=== PATIENT | female | born 1985 | race Caucasian/White ===

== ENCOUNTER 2016-09-22 11:13 | Emergency (ER) | payer OTHER ==
[2016-09-22] MEDS ORDERED: hydrOXYzine HCL TAB* 50 MG PO ONE (11:50)
[2016-09-22] MEDS ORDERED: hydrOXYzine HCL TAB* 25 MG PO ONE (11:55)
--- NOTE | 2016-09-22 11:57 | ED ---
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 Home had multiple pets - she's not sure if they were itching or not and doesn't recall seeing bugs. Has tried topical hydrocortisone cream w/o relief. She denies fever, chills, trouble breathing, YUAN, N/V/D. No one at home has a rash or is itching (sleeps with and has a few kids - none w/ rash). No new foods, plants, cosmetics, etc. Allergies to PCN and latex - no known contacts w/ either of these. - History of Current Complaint Chief Complaint: UCSkin Time Seen by Provider: 09/22/16 11:38 Stated Complaint: SKIN COMPLAINT Hx Obtained From: Patient Hx Last Menstrual Period: 09/22/16 - Allergy/Home Medications Allergies/Adverse Reactions: Allergies Allergy/AdvReac Type Severity Reaction Status Date / Time Latex Allergy Severe Rash Verified 09/22/16 11:29 Penicillins Allergy Severe LIPS/TONGUE Verified 09/22/16 11:29 SWELLING Home Medications: Home Medications Hydrocortisone 1% CREAM* [Hytone (Topical) 1%*] 1 applic TOPICAL ONCE PRN [History Confirmed 09/22/16] PMH/Surg Hx/FS Hx/Imm Hx Previously Healthy: Yes Endocrine/Hematology History: Denies: Hx Diabetes, Hx Thyroid Disease Cardiovascular History: Denies: Hx Hypertension Respiratory History: Reports: Hx Seasonal Allergies - mild Denies: Hx Asthma, Hx Chronic Obstructive Pulmonary Disease (COPD) GI History: Denies: Hx Ulcer Psychiatric History: Denies: Hx Depression - Surgical History Surgery Procedure, Year, and Place: X4. tubal. ankle surgery d/t septicemia. D&C. appendectomy 06/2014 Infectious Disease History: No Infectious Disease History: Denies: Hx Clostridium Difficile, Hx Hepatitis, Hx Human Immunodeficiency Virus (HIV), Hx of Known/Suspected MRSA, Hx Shingles, Hx Tuberculosis, Hx Known/ Suspected VRE, Hx Known/Suspected VRSA, History Other Infectious Disease, Traveled Outside the [place] in Last 30 Days - Family History Known Family History: Positive: Other - children w/ dye allergy - Social History Occupation: Employed Full-time - home health aid Lives: With Family Alcohol Use: None Hx Substance Use: No Substance Use Type: Reports: None Hx Tobacco Use: Yes Smoking Status (MU): Current Every Day Smoker Type: Cigarettes Amount Used/How Often: <1/2PPD Length of Time of Smoking/Using Tobacco: 14 YRS Have You Smoked in the Last Year: Yes Review of Systems Constitutional: Negative Eyes: Negative ENT: Negative Cardiovascular: Negative Respiratory: Negative Gastrointestinal: Negative Positive: no symptoms reported Musculoskeletal: Negative Skin: Other - see HPI Neurological: Negative Positive: Anxious All Other Systems Reviewed And Are Negative: Yes Physical Exam Triage Information Reviewed: Yes Vital Signs On Initial Exam: Initial Vitals Temp Pulse Resp BP Pulse Ox 97.7 F 87 14 132/73 98 09/22/16 11:22 09/22/16 11:22 09/22/16 11:22 09/22/16 11:22 09/22/16 11:22 Vital Signs Reviewed: Yes Appearance: Positive: Well-Appearing, No Pain Distress - but is concerned and anxious about burning and itching nature of her rash spots Skin: Positive: Warm, Dry - urticarial spots on arms, most concentrated over Rt tricep area; a few random spots on torso - appear to be bug bites w/ surrounding erythema and edema - no scabbing, no EM rash, no pusutles or vesicles Head/Face: Positive: Normal Head/Face Inspection Eyes: Positive: Normal, EOMI, Conjunctiva Clear ENT: Positive: Hearing grossly normal, Pharynx normal Respiratory/Lung Sounds: Positive: Clear to Auscultation, Breath Sounds Present. Negative: Rales, Rhonchi, Wheezes Cardiovascular: Positive: Normal, RRR, Pulses are Symmetrical in both Upper and Lower Extremities Bowel Sounds: Positive: Present Musculoskeletal: Positive: Normal, Strength/ROM Intact Neurological: Positive: Normal, Sensory/Motor Intact, Alert, Oriented to Person Place, Time, CN Intact II-III Psychiatric: Positive: Anxious Diagnostics - Vital Signs Vital Signs Temp Pulse Resp BP Pulse Ox 09/22/16 11:22 97.7 F 87 14 132/73 98 - Laboratory Lab Statement: Any lab studies that have been ordered have been reviewed, and results considered in the medical decision making process. Course/Dx - Course Course Of Treatment: Suspect pt is having an allergic reaction to insectr bites , possibly fleas based on report of contact w/ multiple animals recently and no one at home has contracted rash.Advise anti-histamine and topical hydrocortisone + ice. If no relief or worse tomorrow, start medrol dosepak. She has already reported this to her employer. Reviewed danger s/sx of when to go to ED. Pt will f/u w/ PCP otherwise. - Diagnoses Provider Diagnoses: Urticarial rash Discharge - Discharge Plan Condition: Stable Disposition: HOME Prescriptions: Methylprednisolone [Medrol Dosepak 4 MG*] 4 mg PO .SEE LIZZETH INSTRUCTION #1 lizzeth hydrOXYzine HCL TAB* [Atarax 25 MG TAB*] 25 mg PO QID PRN #20 tab PRN Reason: Itching Patient Education Materials: Urticaria (ED) Forms: *Work Release Referrals: Spring Romeo MD [Primary Care Provider] -
[2016-09-22 12:13] VITALS: BP 132/73
== END 2016-09-22 12:29 | disposition home or self-care (01) ==
LOC: UCCORT 11:13
DX: L50.9 Urticaria, unspecified (principal); Z88.0 Allergy status to penicillin; F17.210 Nicotine dependence, cigarettes, uncomplicated
CPT/HCPCS: 99212; A9270-GY; G0463

== ENCOUNTER 2017-05-24 10:24 | Emergency (ER) | payer OTHER ==
[2017-05-24 12:01] VITALS: BP 116/72
--- NOTE | 2017-05-24 12:36 | UC ---
Throat Pain/Nasal Russ HPI - HPI Summary HPI Summary: Pt presents with left earache and ST for the last 2 weeks. She tells me that about 2 weeks ago she started developed a ST, but wasn't that bad. Over the last week has had an increasingly painful left earache and sinus pain/pressure/ congestion. She denies fever, chills, cough, SOB, chest pain, abdominal pain, N/ V/D/C. - History of Current Complaint Chief Complaint: UCRespiratory Stated Complaint: SORE THROAT HEADACHE Time Seen by Provider: 05/24/17 12:34 Hx Obtained From: Patient Hx Last Menstrual Period: 04/22/17 Onset/Duration: Gradual Onset Severity: Moderate Pain Intensity: 5 Pain Scale Used: 0-10 Numeric - Allergies/Home Medications Allergies/Adverse Reactions: Allergies Allergy/AdvReac Type Severity Reaction Status Date / Time Latex Allergy Severe Rash Verified 05/24/17 11:57 Penicillins Allergy Severe LIPS/TONGUE Verified 05/24/17 11:57 SWELLING PMH/Surg Hx/FS Hx/Imm Hx Neurological History: Migraine - Surgical History Surgical History: Yes Surgery Procedure, Year, and Place: X3. ankle surgery d/t septicemia. D&C. appendectomy 06/2014 - Family History Known Family History: Positive: None, Other - children w/ dye allergy - Social History Occupation: Employed Full-time Lives: With Family Alcohol Use: None Substance Use Type: None Smoking Status (MU): Current Every Day Smoker Type: Cigarettes Amount Used/How Often: quit in october 2014 Length of Time of Smoking/Using Tobacco: 14 YRS Have You Smoked in the Last Year: Yes When Did the Patient Quit Smoking/Using Tobacco: 1 month ago Household Exposure Type: Cigarettes Cessation Counseling: Counseled 3+Min - 10 Min Review of Systems Constitutional: Negative Skin: Negative Eyes: Negative ENT: Sore Throat, Ear Ache, Nasal Discharge, Sinus Congestion, Sinus Pain/ Tenderness Respiratory: Negative Cardiovascular: Negative Gastrointestinal: Negative All Other Systems Reviewed And Are Negative: Yes Physical Exam Triage Information Reviewed: Yes Appearance: Well-Appearing, Obese Vital Signs: Initial Vital Signs Temp 97 F 05/24/17 11:58 Pulse 86 05/24/17 11:58 Resp 16 05/24/17 11:58 BP 116/72 05/24/17 11:58 Pulse Ox 100 05/24/17 11:58 Vital Signs Reviewed: Yes Eyes: Positive: Conjunctiva Clear. Negative: Conjunctiva Inflamed, Discharge ENT: Positive: Hearing grossly normal, Pharynx normal, Nasal congestion, Nasal drainage, TM bulging - LEft ear, TM red - Left ear, Sinus tenderness, Uvula midline. Negative: Pharyngeal erythema, Tonsillar swelling, Tonsillar exudate, Muffled voice, Hoarse voice Neck: Positive: Supple, Nontender, No Lymphadenopathy Respiratory: Positive: Chest non-tender, Lungs clear, Normal breath sounds, No respiratory distress, No accessory muscle use Cardiovascular: Positive: RRR, No Murmur, Pulses Normal Neurological: Positive: Alert Psychological: Positive: Age Appropriate Behavior Skin: Negative: rashes Throat Pain/Nasal Course/Dx - Course Course Of Treatment: left ear otitis media. sinusitis. Zpak - Differential Dx/Diagnosis Differential Diagnosis/HQI/PQRI: Influenza, Laryngitis, Mononucleosis, Otitis Media, Pharyngitis, Sinusitis, Tonsillitis, URI Provider Diagnoses: Left ear otitis media. Sinusitis Discharge - Discharge Plan Condition: Stable Disposition: HOME Prescriptions: Azithromycin TAB* [Zithromax TAB (Z-LIZZETH) 250 mg #6 tabs] 2 tab PO .TODAY, THEN 1 DAILY #1 lizzeth Patient Education Materials: Otitis Media (ED) Referrals: Alicia Saeed MD [Primary Care Provider] - Additional Instructions: If you develop a fever, shortness of breath, chest pain, new or worsening symptoms - please call your PCP or go to the ED.
== END 2017-05-24 13:00 | disposition home or self-care (01) ==
LOC: UCEAST 10:24
DX: H66.92 Otitis media, unspecified, left ear (principal); J32.9 Chronic sinusitis, unspecified; Z87.891 Personal history of nicotine dependence; Z88.0 Allergy status to penicillin; Z91.040 Latex allergy status
CPT/HCPCS: 99212; G0463

== ENCOUNTER 2018-03-24 09:55 | Emergency (ER) | payer OTHER ==
[2018-03-24 10:22] VITALS: BP 115/63
[2018-03-24] MEDS ORDERED: Naproxen TAB* 250 MG PO ONE (10:41)
--- NOTE | 2018-03-24 10:42 | UC ---
Minor Trauma HPI - HPI Summary HPI Summary: 32 year old female presents with left sided facial and jaw pain after accidentally running into corner of a wooden bunkbed yesterday at 15:00. Denies LOC. Pain is located primarily to left maxilla but patient also complains of tender over superior left orbital ridge and left TMJ. Fractured left upper tooth. Complains of cut on the inside of her left upper lip. Denies - History of Current Complaint Chief Complaint: UCHeadInjury Stated Complaint: FACIAL INJURY Time Seen by Provider: 03/24/18 10:18 Hx Obtained From: Patient Hx Last Menstrual Period: 03/24/18 Onset/Duration: Sudden Onset, Lasting Hours Onset Of Pain: Immediate Severity Currently: Moderate Pain Intensity: 8 Mechanism Of Injury: Direct Blow Aggravating Factor(s): Nothing Alleviating Factor(s): Nothing Associated Signs And Symptoms: Positive: Ecchymosis - See diagram. Negative: Loss Of Consciousness - Allergies/Home Medications Allergies/Adverse Reactions: Allergies Allergy/AdvReac Type Severity Reaction Status Date / Time latex Allergy Rash Verified 03/24/18 10:22 Penicillins Allergy Swelling Verified 03/24/18 10:22 Of Face,Lips,& Throat Home Medications: Home Medications Acetaminophen [Acetaminophen Extra Strength] 1,000 mg PO ONCE PRN 03/24/18 [ History Confirmed 03/24/18] Ibuprofen 800 mg PO ONCE PRN 03/24/18 [History Confirmed 03/24/18] PMH/Surg Hx/FS Hx/Imm Hx Previously Healthy: Yes - Denies significant PMH - Surgical History Surgical History: Yes Surgery Procedure, Year, and Place: X5, TUBAL LIGATION. ankle surgery d/t septicemia. D&C. appendectomy 06/2014 - Family History Family History: Noncontributory - Social History Occupation: Employed Full-time Lives: With Family Alcohol Use: None Substance Use Type: None Smoking Status (MU): Current Every Day Smoker Type: Cigarettes Amount Used/How Often: 5 cig/day Length of Time of Smoking/Using Tobacco: 14 YRS Have You Smoked in the Last Year: Yes When Did the Patient Quit Smoking/Using Tobacco: 1 month ago Household Exposure Type: Cigarettes Review of Systems Constitutional: Negative Skin: Bruising Eyes: Negative ENT: Other - See HPI Respiratory: Negative Cardiovascular: Negative Gastrointestinal: Negative Is Patient Immunocompromised?: No All Other Systems Reviewed And Are Negative: Yes Physical Exam Triage Information Reviewed: Yes Appearance: No Pain Distress, Obese Vital Signs: Initial Vital Signs Temp 98.3 F 03/24/18 10:14 Pulse 68 03/24/18 10:14 Resp 18 03/24/18 10:14 BP 115/63 03/24/18 10:14 Pulse Ox 97 03/24/18 10:14 Vital Signs Reviewed: Yes Eye Exam: Other - PERRLA. Extraoccular eye movements intact. No FB noted. Eyes: Positive: Conjunctiva Clear ENT: Positive: Pharynx normal, TMs normal, Uvula midline, Other - Tenderness to supraorbital ridge left eye. Tenderness over left maxilla. Tenderness to left TMJ however full ROM without clicking or popping. No subcutaneous emphysema noted.. Negative: Nasal congestion, Nasal drainage, Trismus Dental: Positive: Dental Fracture @ - #13 Neck: Positive: Supple, Nontender, Other: - Full painless cervical ROM. No spinous process tenderness. No deformity or stepoff. Respiratory: Positive: Lungs clear, Normal breath sounds Cardiovascular: Positive: RRR, No Murmur Neurological: Positive: Alert Skin Exam: Other - Ecchymosis as noted above. Diagnostics - Radiology No standard instances Radiology Interpretation Completed By: Radiologist Summary of Radiographic Findings: Patient Name: CHRISTA BUSTAMANTE Medical Record#: [id number]. Ordering Physician: Taurus Wiseman NP Acct.#: [id number]. : 1985 Age: 32 Sex: F Location: [facility]. Exam Date: 07/10 1033 ADM Status: REG ER. Order Information: CT MAXILLOFACIAL W/O. Accession Number: [id number]. CPT: 99368. HISTORY: facial trauma w/ left maxillary and TMJ tenderness. COMPARISONS: None. TECHNIQUE: Multiple contiguous axial CT scans were obtained of the face without. intravenous contrast, with coronal and sagittal multiplanar reformations. FINDINGS: BONES : There is no displaced fracture or dislocation. The orbital rim is intact. The. zygomatic arch is intact. The pterygoid plates are intact. ORBITS: The globes are round. The optic nerves are symmetric. The extraocular musculature. is normal. There is no post septal or intraconal inflammatory change. There is no. retrobulbar hematoma. PARANASAL SINUSES: There is mucosal thickening of the ethmoid air cells. There is mucosal. thickening of the right maxillary sinus. BRAIN AND SOFT TISSUE: Unremarkable. OTHER: There is a lucency consistent with the history of dental fracture through a left. maxillary bicuspid. IMPRESSION: NO FACIAL BONE FRACTURE Minor Trauma Course/Dx - Course Course Of Treatment: 32 year old female presents with left sided facial pain after accidentally running into the corner of a bunkbed. Exam revealed fracture of 2nd left upper bicuspid with superficial inner lip laceration, tenderness to left maxilla, left supraorbital ridge, and left TMJ. CT maxilofacial bones negative for fracture. Recommend NSAIDs for pain management, saline rinses, and follow up with dentist for definitive care. Warning symptoms reviewed with patient. Verbalizes understanding. Agrees with POC. - Differential Dx/Diagnosis Differential Diagnosis/HQI/PQRI: Contusion(s), Fracture, Dislocation Provider Diagnoses: Dental fracture 2nd left upper bicuspid Discharge - Sign-Out/Discharge Documenting (check all that apply): Patient Departure All imaging exams completed and their final reports reviewed: Yes - Discharge Plan Condition: Stable Disposition: HOME Prescriptions: Naproxen [Naproxen 500 mg tab] 500 mg PO BID #30 tablet Patient Education Materials: Acute Dental Trauma (ED) Referrals: Alicia Saeed MD [Primary Care Provider] - Additional Instructions: The CT scan of your facial bones showed no fractures. You do have a fracture of the left upper bicuspid that will need evaluation by the dentist. Call for next available appointment. Take naproxen 1 tab every 12 hours as needed for pain. Use salt water rinses after each meal and at bedtime to remove any debris. Seem immediate medical attention in the emergency room if you have sudden severe headache, vision disturbances, lose consciousness, are unable to open your mouth, are unable to swallow, have difficulty breathing, or any worsening of symptoms. - Billing Disposition and Condition Condition: STABLE Disposition: Home Images Head: 1 - Ecchymosis Dental: 1 - Dental fracture 2 - Superficial laceration inner lip
--- NOTE | 2018-03-24 11:19 | RAD ---
HISTORY: facial trauma w/ left maxillary and TMJ tenderness COMPARISONS: None TECHNIQUE: Multiple contiguous axial CT scans were obtained of the face without intravenous contrast, with coronal and sagittal multiplanar reformations. FINDINGS: BONES: There is no displaced fracture or dislocation. The orbital rim is intact. The zygomatic arch is intact. The pterygoid plates are intact. ORBITS: The globes are round. The optic nerves are symmetric. The extraocular musculature is normal. There is no post septal or intraconal inflammatory change. There is no retrobulbar hematoma. PARANASAL SINUSES: There is mucosal thickening of the ethmoid air cells. There is mucosal thickening of the right maxillary sinus. BRAIN AND SOFT TISSUE: Unremarkable. OTHER: There is a lucency consistent with the history of dental fracture through a left maxillary bicuspid. IMPRESSION: NO FACIAL BONE FRACTURE
== END 2018-03-24 11:35 | disposition home or self-care (01) ==
LOC: UCEAST 09:55
DX: S02.5XXA Fracture of tooth (traumatic), initial encounter for closed fracture (principal); W22.03XA Walked into furniture, initial encounter; Y92.003 Bedroom of unspecified non-institutional (private) residence as the place of occurrence of the external cause; Z88.0 Allergy status to penicillin; Z91.040 Latex allergy status; F17.210 Nicotine dependence, cigarettes, uncomplicated
CPT/HCPCS: 70486; 99211; A9270-GY; G0463

== ENCOUNTER 2018-09-03 15:26 | Emergency (ER) | payer OTHER ==
[2018-09-03 15:38] VITALS: BP 155/87
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
== END 2018-09-03 16:55 | disposition home or self-care (01) ==
LOC: UCEAST 15:26
DX: S90.112A Contusion of left great toe without damage to nail, initial encounter (principal); X58.XXXA Exposure to other specified factors, initial encounter; Y92.009 Unspecified place in unspecified non-institutional (private) residence as the place of occurrence of the external cause; Z88.0 Allergy status to penicillin; Z91.040 Latex allergy status; F17.210 Nicotine dependence, cigarettes, uncomplicated
CPT/HCPCS: 99212; G0463

== ENCOUNTER 2019-06-27 08:53 | Emergency (ER) | payer OTHER ==
[2019-06-27 09:18] VITALS: BP 103/63
--- NOTE | 2019-06-27 10:14 | UC ---
Throat Pain/Nasal Russ HPI - HPI Summary HPI Summary: sinus pain / pressure x 1 day nasal congestion, pnd, dental pain cough , no fever, no chills, concern about sinus infection - History of Current Complaint Chief Complaint: UCRespiratory Stated Complaint: CONGESTION/COUGH Time Seen by Provider: 06/27/19 09:10 Hx Obtained From: Patient Hx Last Menstrual Period: last month ?: No Onset/Duration: Gradual Onset, Lasting Days - 1, Still Present Severity: Severe Pain Intensity: 10 Cough: Nonproductive Associated Signs & Symptoms: Positive: Sinus Discomfort, Nasal Discharge. Negative: Fever, Vomiting, Rash - Allergies/Home Medications Allergies/Adverse Reactions: Allergies Allergy/AdvReac Type Severity Reaction Status Date / Time latex Allergy Rash Verified 06/27/19 09:12 Penicillins Allergy Swelling Verified 06/27/19 09:12 Of Face,Lips,& Throat PMH/Surg Hx/FS Hx/Imm Hx Previously Healthy: Yes - Surgical History Surgical History: Yes Surgery Procedure, Year, and Place: X4, TUBAL LIGATION 2016. ankle surgery d/t septicemia. D&C. appendectomy 06/2012 - Family History Known Family History: Positive: None, Other - children w/ dye allergy Family History: Noncontributory - Social History Alcohol Use: None Substance Use Type: None Smoking Status (MU): Light Every Day Tobacco Smoker Type: Cigarettes Amount Used/How Often: 3-5 cig/day Length of Time of Smoking/Using Tobacco: 14 YRS Have You Smoked in the Last Year: Yes When Did the Patient Quit Smoking/Using Tobacco: 1 month ago Household Exposure Type: Cigarettes Review of Systems All Other Systems Reviewed And Are Negative: Yes Constitutional: Negative: Fever, Chills, Fatigue Skin: Positive: Negative Eyes: Positive: Negative ENT: Positive: Sore Throat, Nasal Discharge, Sinus Pain/Tenderness Respiratory: Positive: Cough Is Patient Immunocompromised?: No Physical Exam Triage Information Reviewed: Yes Appearance: Well-Appearing, No Pain Distress, Obese Vital Signs: Initial Vital Signs Temp 97.4 F 06/27/19 09:12 Pulse 82 06/27/19 09:12 Resp 16 06/27/19 09:12 BP 103/63 06/27/19 09:12 Pulse Ox 98 06/27/19 09:12 Vital Signs Reviewed: Yes Eye Exam: Normal Eyes: Positive: Conjunctiva Clear ENT: Positive: Normal ENT inspection, Hearing grossly normal, Pharynx normal Neck: Positive: Supple, Nontender, No Lymphadenopathy Respiratory: Positive: Chest non-tender, Lungs clear, Normal breath sounds Cardiovascular: Positive: RRR, No Murmur, Pulses Normal Throat Pain/Nasal Course/Dx - Differential Dx/Diagnosis Provider Diagnosis: URI (upper respiratory infection) Discharge ED - Sign-Out/Discharge Documenting (check all that apply): Patient Departure All imaging exams completed and their final reports reviewed: No Studies - Discharge Plan Condition: Stable Disposition: HOME Prescriptions: Benzonatate CAP* [Tessalon 100 MG CAP*] 100 mg PO TID PRN #21 cap PRN Reason: Cough Fluticasone NASAL SPRAY 50MCG* [Flonase NASAL SPRAY 50MCG*] 2 spray BOTH NARES DAILY #1 btl Patient Education Materials: Upper Respiratory Infection (ED) Referrals: No Primary Care Phys,NOPCP [Primary Care Provider] - If Needed - Billing Disposition and Condition Condition: STABLE Disposition: Home
[2019-06-27 12:12] LABS: Influenza A Molecular Negative (Negative); Influenza B Molecular Negative (Negative)
== END 2019-06-27 10:13 | disposition home or self-care (01) ==
LOC: UCCORT 08:53
DX: J06.9 Acute upper respiratory infection, unspecified (principal); F17.210 Nicotine dependence, cigarettes, uncomplicated; Z88.0 Allergy status to penicillin; Z91.040 Latex allergy status
CPT/HCPCS: 87651; 99212; G0463